=== PATIENT | male | born 1980 ===

== ENCOUNTER 2017-02-16 15:53 | Emergency (ER) | payer OTHER ==
--- NOTE | 2017-02-16 16:25 | Emergency Department Report ---
ED Fall HPI - General Chief Complaint: Fall Stated Complaint: LEFT SHOULDER AND HIP PAIN Time Seen by Provider: 02/16/17 16:24 Source: patient, police Mode of arrival: Wheelchair - History of Present Illness Initial Comments: 36-year-old male past medical history complex regional pain syndrome as per alf facility paperwork brought in from corrections facility for evaluation. Patient is accompanied by correction officers. As per alf facility paperwork patient has been experiencing left shoulder left wrist left rib left hip left knee and left ankle pain status post fall. On exam patient is awake alert and oriented 3 does not appear to be in acute distress no audible wheezing or stridor speaking in full sentences. Patient speaks Mongolian which I speak fluently. He is awake alert and oriented and cooperative. States that while he was ambulating in [facility] facility he slipped on a puddle of water with ice which she claims was on the ground. States that he ambulates using crutches secondary to chronic left foot and knee pain. Patient denies hitting his head denies any loss of consciousness denies any neck pain does state that if he touches his left side ribs that he experiences some pain. Denies sustaining any lacerations. Patient states it is difficult to ambulate due to pain in his left ankle which she has had chronically which has been worsened by this fall. Fall occurred yesterday as per patient MD Complaint: fall -: This morning Fall From: standing Fall Witnessed: yes, by bystander Place Fall Occurred: other ([facility]) Loss of Consciousness: none Prolonged Down Time?: no Symptoms Prior to Fall: none Location - Extremities: Left: Shoulder, Elbow Severity: moderate Severity scale (0 -10): 7 Quality: aching Context: tripped/slipped Associated Symptoms: unable to walk - Related Data Previous Rx's Medication Instructions Recorded Last Taken Type Naproxen [Naprosyn] 500 mg PO BID PRN #30 tablet 02/16/17 Unknown Rx Allergies Allergy/AdvReac Type Severity Reaction Status Date / Time No Known Allergies Allergy Unverified 02/16/17 16:11 ED Review of Systems ROS: Stated complaint: LEFT SHOULDER AND HIP PAIN Other details as noted in HPI Constitutional: denies: chills, fever Eyes: denies: eye pain, eye discharge, vision change ENT: denies: ear pain, throat pain Respiratory: denies: cough, shortness of breath, wheezing Cardiovascular: denies: chest pain, palpitations Endocrine: no symptoms reported Gastrointestinal: denies: abdominal pain, nausea, diarrhea Genitourinary: denies: urgency, dysuria Musculoskeletal: as per HPI (chronic left ankle pain as per patient. Shelter center report indicates chronic regional pain syndrome), arthralgia (chronic left ankle pain). denies: back pain, joint swelling Skin: denies: rash, lesions Neurological: denies: headache, weakness, paresthesias Psychiatric: denies: anxiety, depression Hematological/Lymphatic: denies: easy bleeding, easy bruising ED Past Medical Hx - Past Medical History Additional medical history: UNKNOWN - Surgical History Additional Surgical History: UN KNOWN - Social History Smoking Status: Never Smoker Substance Use Type: None - Medications Home Medications: Home Medications Medication Instructions Recorded Confirmed Last Taken Type Naproxen [Naprosyn] 500 mg PO BID PRN #30 tablet 02/16/17 Unknown Rx ED Physical Exam - General Limitations: Physical Limitation General appearance: alert, in no apparent distress - Head Head exam: Present: atraumatic, normocephalic - Eye Eye exam: Present: normal appearance, PERRL, EOMI - ENT ENT exam: Present: mucous membranes moist - Neck Neck exam: Present: normal inspection - Respiratory Respiratory exam: Present: normal lung sounds bilaterally. Absent: respiratory distress - Cardiovascular Cardiovascular Exam: Present: regular rate, normal rhythm. Absent: systolic murmur, diastolic murmur, rubs, gallop - GI/Abdominal GI/Abdominal exam: Present: soft, normal bowel sounds - Rectal Rectal exam: Present: deferred - Extremities Exam Extremities exam: Present: normal inspection - Expanded Upper Extremity Exam Left Shoulder Exam: Present: normal inspection, full ROM (shoulder internalRotation, external rotation abduction and abduction intact on exam) Upper Arm exam: Present: normal inspection, full ROM Elbow exam: Present: normal inspection, full ROM (elbow flexion and extension intact some lateral tenderness near lateral epicondyles) Forearm Wrist exam: Present: normal inspection, full ROM Hand Wrist exam: Present: full ROM (wrist flexion and extension intact some pain with extension) Neuro motor exam: Present: wrist extension intact, thumb opposition intact, thumb IP flexion intact, thumb adduction intact, fingers 2-5 abduction intact Neurosensory exam: Present: 2-point discrimination, radial nerve intact, ulnar nerve intact, median nerve intact Vascular: Present: radial pulse (distal radial and ulnar pulses intact to palpation) - Expanded Lower Extremity Exam Left Hip exam: Present: normal inspection, full ROM (wrist internal and external rotation intact, flexion and extension intact), tenderness (tenderness to deep palpation left hip) Upper Leg exam: Present: normal inspection, full ROM Knee exam: Present: normal inspection, full ROM Lower Leg exam: Present: normal inspection, full ROM Ankle exam: Present: tenderness, swelling (swelling left lateral malleolar region. Patient had an ankle Kelvin wrap on before I examined him) Foot/Toe exam: Present: normal inspection, full ROM Neuro vascular tendon exam: Present: no vascular compromise (distal dorsalis pedis and posterior tibial pulses intact) Gait: Positive: unable to bear weight 1 - Some pain on examination here 2 - Pain on palpation examination here - Back Exam Back exam: Present: normal inspection - Neurological Exam Neurological exam: Present: alert, oriented X3, CN II-XII intact, abnormal gait (antalgic gait secondary to pain) - Psychiatric Psychiatric exam: Present: normal affect, normal mood - Skin Skin exam: Present: warm, dry, intact, normal color. Absent: rash ED Course Vital Signs 02/16/17 16:11 Temperature 97.8 F Pulse Rate 82 Respiratory 18 Rate Blood Pressure 136/92 O2 Sat by Pulse 97 Oximetry ED Medical Decision Making - Medical Decision Making A/P: Mechanical fall 1-[place] head CT rules and Nexus criteria negative for CT of either head or C-spine to be necessary. Patient denies head trauma associated with this fall and denies neck pain 2-x-rays of the left shoulder left side ribs left hip left knee left wrist left elbow and left ankle are unremarkable no acute fractures mild osteoarthritis and osteopenia left ankle. Chest x-ray unremarkable no left-sided rib fractures. 3-naproxen when necessary, patient to follow up with primary care and management as per alf facility medical staff 4- For Kelvin wrap to left elbow Critical care attestation.: If time is entered above; I have spent that time in minutes in the direct care of this critically ill patient, excluding procedure time. ED Disposition Clinical Impression: Multiple contusions Left wrist sprain Qualifiers: Encounter type: initial encounter Qualified Code(s): S63.502A - Unspecified sprain of left wrist, initial encounter Left ankle sprain Qualifiers: Encounter type: initial encounter Involved ligament of ankle: tibiofibular ligament Qualified Code(s): S93.432A - Sprain of tibiofibular ligament of left ankle, initial encounter Disposition: TO HOME OR SELFCARE Is pt being admited?: No Does the pt Need Aspirin: No Condition: Stable Instructions: Osteoarthritis (ED), Wrist Sprain (ED), Ankle Sprain (ED) Prescriptions: Naproxen [Naprosyn] 500 mg PO BID PRN #30 tablet PRN Reason: Pain Referrals: PRIMARY CARE, [Primary Care Provider] - 3-5 Days Time of Disposition: 18:43
[2017-02-16] MEDS ORDERED: MOTRIN PO ONE (17:03)
[2017-02-16] MEDS ORDERED: TYLENOL #3 PO ONE (17:03)
--- NOTE | 2017-02-16 18:18 | XRay Report ---
FINAL REPORT PROCEDURE: XR SHOULDER 2+V LT TECHNIQUE: Left shoulder radiographs including AP views in internal and external rotation and abduction. CPT 40652 HISTORY: s/p fall ? fracture COMPARISON: No prior studies are available for comparison. FINDINGS: Fracture (s) and/or Dislocation(s): None . Joint space(s): Normal . Soft tissues: Normal . Bone mineralization: Normal . Foreign bodies: None . IMPRESSION: Normal Examination
--- NOTE | 2017-02-16 18:19 | XRay Report ---
FINAL REPORT PROCEDURE: XR WRIST 2V LT TECHNIQUE: LEFT wrist radiographs, AP and lateral views. HISTORY: s/p fall ? fracture COMPARISON: No prior studies are available for comparison. FINDINGS: Fracture(s)and/or Dislocation(s): None. Alignment: Normal. Joint space(s): Normal. Soft tissues: Normal. Bone mineralization: Normal. Foreign bodies: None. IMPRESSION: Normal Examination
--- NOTE | 2017-02-16 18:20 | XRay Report ---
FINAL REPORT PROCEDURE: XR ELBOW 3+V LT TECHNIQUE: LEFT elbow radiographs, including AP, lateral, and oblique views. CPT 00409 HISTORY: s/p fall ? fracture COMPARISON: No prior studies are available for comparison. FINDINGS: Fracture (s) and/or Dislocation(s): None . Alignment: Normal . Joint space(s): Normal . Soft tissues: Normal . Bone mineralization: Mild degree osteophyte formation is noted involving the elbow joint. Foreign bodies: None . IMPRESSION: No acute fracture Mild degree osteoarthritis
--- NOTE | 2017-02-16 18:21 | XRay Report ---
FINAL REPORT PROCEDURE: XR KNEE 3V LT TECHNIQUE: LEFT knee radiographs, AP, lateral and sunrise views. CPT 87886 HISTORY: s/p fall in [place] custody COMPARISON: No prior studies are available for comparison. FINDINGS: Fracture (s) and/or Dislocation(s): None . Alignment: Normal . Joint space(s): Normal . Soft tissues: Normal . Bone mineralization: Normal . Foreign bodies: None . IMPRESSION: Normal Examination.
--- NOTE | 2017-02-16 18:21 | XRay Report ---
FINAL REPORT PROCEDURE: XR ANKLE 3+V LT TECHNIQUE: LEFT ankle radiographs, AP, lateral, and oblique views. CPT 54856 HISTORY: s/p fall ? fracture COMPARISON: No prior studies are available for comparison. FINDINGS: Fracture (s) and/or Dislocation(s): None. Alignment: Normal. Joint space(s): Normal. Soft tissues: Normal. Bone mineralization: Bones are diffusely osteopenic. Foreign bodies: None. Calcaneal spurring: None. IMPRESSION: Diffuse osteopenia. No acute fracture.
--- NOTE | 2017-02-16 18:23 | XRay Report ---
FINAL REPORT PROCEDURE: XR HIP 2-3V LT TECHNIQUE: LEFT hip radiographs, 2 views each, including AP view of the pelvis. HISTORY: left hip pain s/p fall COMPARISON: No prior studies are available for comparison. FINDINGS: Fracture (s) and/or Dislocation(s): None . Joint space(s): Normal. Soft tissues: Normal. Bone mineralization: Normal. Foreign bodies: None. IMPRESSION: Normal Examination.
--- NOTE | 2017-02-16 18:25 | XRay Report ---
FINAL REPORT PROCEDURE: XR RIBS UNI W PA CHEST 3+V LT TECHNIQUE: LEFT rib radiographs, 3 views of the ribs, including PA chest. HISTORY: s/p fall ? fracture COMPARISON: No prior studies are available for comparison. FINDINGS: Heart: Normal. Mediastinum/Vessels: Normal. Lungs: Normal. Pleural space: Normal. Pneumothorax: None. Bony thorax/ribs: No significant abnormality. IMPRESSION: Normal Examination.
[2017-02-16 21:16] VITALS: BP 143/83
== END 2017-02-16 19:05 ==
LOC: EEVIPCON 15:53 → ED 15:53
DX: S93.402A Sprain of unspecified ligament of left ankle, initial encounter (principal); S63.502A Unspecified sprain of left wrist, initial encounter; M25.552 Pain in left hip; R07.81 Pleurodynia; W00.0XXA Fall on same level due to ice and snow, initial encounter; Y93.89 Activity, other specified; Y92.89 Other specified places as the place of occurrence of the external cause; Y99.8 Other external cause status
CPT/HCPCS: 99284